=== PATIENT | female | born 1995 | race Two or more races ===

== ENCOUNTER 2017-05-17 09:27 | Emergency (ER) | payer OTHER ==
[~2017-05-17] VITALS: Ht 154.9 cm; Wt 74.8 kg
[2017-05-17 13:00] VITALS: BP 112/73
== END 2017-05-17 13:07 | disposition home or self-care (01) ==
LOC: ER 09:27
DX: O99.611 Diseases of the digestive system complicating pregnancy, first trimester (principal); K02.9 Dental caries, unspecified; Z3A.12 12 weeks gestation of pregnancy